=== PATIENT | female | born 1995 | race African-American/Black ===

== ENCOUNTER 2016-04-02 06:16 | Day surgery (SDC) | payer BC ==
[~2016-04-02] VITALS: Ht 160 cm; Wt 123.8 kg
[~2016-04-02 06:16] MED LIST: BENADRYL50 MG PO; CIPRO500 MG PO; ENDOCET 5-3251 EACH PO; FLAGYL500 MG PO; FLEXERIL10 MG PO; IBUPROFEN800 MG PO; KEFLEX500 MG PO; LEVAQUIN750 MG PO; MACROBID100 MG PO; NOHOMEMEDS; PERCOCET 5/31 TABLET PO; PREDNISONE20 MG PO; PRENATAL ONE T1 EACH PO; PYRIDIUM200 MG PO; VENTOLIN HFA18 GM IH; ZANTAC150 MG PO; ZITHROMAX250 MG PO; ZOFRAN ODT4 MG PO; ZOFRAN4 MG PO
[2016-04-02 07:05] LABS: HEMATOCRIT 39.7 % (36.0-46.0); MCH 30.3 PG (29.0-34.0); MCHC 33.5 G/DL (30.0-36.0); MCV 90.4 FL (83-99); MEAN PLAT.VOLUME 10.2 uM^3 (9.5-12.4); PLATELET COUNT 336 K/uL (156-360); RBC DIS.WIDTH-CV 12.7 % (11.8-14.6); RBC DIS.WIDTH-SD 41.2 % (39-53); RED BLOOD COUNT 4.39 M/uL (3.80-5.20); WHITE BLOOD COUNT 7.7 K/uL (4.1-10.2)
[2016-04-02 07:18] LABS: CHLORIDE 108 mEq/L (99-109); POTASSIUM 3.7 mEq/L (3.7-5.4); SODIUM 140 mEq/L (136-147)
[2016-04-02 07:20] LABS: GLUCOSE 90 mg/dL (70-99)
[2016-04-02 07:21] LABS: ANION GAP 9 MEQ/L (2-14)
[2016-04-02 07:22] LABS: TOTAL BILIRUBIN 0.4 mg/dL (0.0-1.0)
[2016-04-02 07:23] LABS: ALKALINE PHOSPHATASE 68 IU/L (3-129)
[2016-04-02 07:24] LABS: GFR ESTIMATE (CALCULATED) > 59 mL/min/
[2016-04-02 07:25] LABS: DIRECT BILIRUBIN 0.2 mg/dL (0.0-0.3); UREA NITROGEN (BUN) 17 mg/dL (9-23)
[2016-04-02 07:27] LABS: LIPASE 33 U/L (1.0-51.0)
[2016-04-02 07:33] LABS: QUANTITATIVE HCG < 4.0 MIU/ML
[2016-04-02 07:49] LABS: TROP-I INTERPRETATION NEGATIVE; TROPONIN-I < 0.01 ng/mL (0.0-0.30)
[2016-04-02 08:07] LABS: ADD MIUA? YES; BILIRUBIN NEGATIVE; BLOOD TRACE; COLOR YELLOW ((YELLOW)); GLUCOSE (STRIP) NEGATIVE; KETONES NEGATIVE; LEUKOCYTES NEGATIVE; NITRITE NEGATIVE; PROTEIN (STRIP) TRACE; UROBILINOGEN 0.2 MG/DL (0.2-1.0)
[2016-04-02 08:44] LABS: RED BLOOD CELLS 0-5 /HPF (0-5)
[2016-04-02 08:46] LABS: BACTERIA 2+ /HPF; CASTS NONE SEEN /LPF; CRYSTALS NONE SEEN; EPITHELIAL CELLS 1+ /HPF; MUCUS 1+ /LPF; UCUL ADDED? NO; WHITE BLOOD CELLS 0-5 /HPF (0-5)
[2016-04-02 14:48] VITALS: BP 114/68
[2016-04-02 22:55] VITALS: BP 115/73
[2016-04-03 04:30] VITALS: BP 109/53
[2016-04-03 07:01] LABS: HEMATOCRIT 40.5 % (36.0-46.0); MCH 30.1 PG (29.0-34.0); MCHC 32.8 G/DL (30.0-36.0); MCV 91.6 FL (83-99); MEAN PLAT.VOLUME 10.3 uM^3 (9.5-12.4); PLATELET COUNT 357 K/uL (156-360); RBC DIS.WIDTH-CV 12.7 % (11.8-14.6); RBC DIS.WIDTH-SD 42.6 % (39-53); RED BLOOD COUNT 4.42 M/uL (3.80-5.20); WHITE BLOOD COUNT 11.8 K/uL (4.1-10.2)
[2016-04-03 07:23] LABS: ALKALINE PHOSPHATASE 52 IU/L (3-129); ANION GAP 8 MEQ/L (2-14); CHLORIDE 104 MEQ/L (99-109); GFR ESTIMATE (CALCULATED) > 59 mL/min/; GLUCOSE 120 mg/dL (70-99); MAGNESIUM 1.8 mg/dl (1.3-2.7); POTASSIUM 4.6 MEQ/L (3.7-5.4); SAMPLE HEMOLYSIS CHECK 0; SAMPLE ICTERIC CHECK 0; SAMPLE LIPEMIA CHECK 0; SODIUM 136 MEQ/L (136-147); TOTAL BILIRUBIN 0.6 MG/DL (0.0-1.0); UREA NITROGEN (BUN) 7 mg/dL (9-23)
[2016-04-03 08:00] VITALS: BP 113/57
[2016-04-03 08:34] LABS: TROP-I INTERPRETATION NEGATIVE; TROPONIN-I < 0.01 ng/mL (0.0-0.30)
[2016-04-03] MEDS ORDERED: PERCOCET 5/31 TABLET PO (10:14)
[2016-04-03] MEDS ORDERED: CIPRO500 MG PO (10:14)
[2016-04-03 11:07] VITALS: BP 108/62
[2016-04-03 16:09] VITALS: BP 104/55; BP 121/58
[2016-04-03 17:09] LABS: TROP-I INTERPRETATION NEGATIVE; TROPONIN-I < 0.01 ng/mL (0.0-0.30)
[2016-04-03 19:50] VITALS: BP 94/55
[2016-04-03 23:10] VITALS: BP 115/68
[2016-04-04 07:57] VITALS: BP 117/85
== END 2016-04-04 10:15 | disposition home or self-care (01) ==
LOC: EME 06:16 → SDC 14:15 → 4SOUTH 19:41 → 2SOUTH 19:41 → 4SOUTH 22:44
PROVIDERS: Surgery
PROC: 0DTJ4ZZ Resection of Appendix, Percutaneous Endoscopic Approach (ICD-10-PCS; principal; 2016-04-02)
DX: K35.80 Unspecified acute appendicitis (principal); K55.069 Acute infarction of intestine, part and extent unspecified; K63.89 Other specified diseases of intestine; E66.01 Morbid (severe) obesity due to excess calories; Z68.42 Body mass index [BMI] 45.0-49.9, adult; Z87.891 Personal history of nicotine dependence
CPT/HCPCS: 71020; 74177; 80053; 81003; 82248; 83690; 83735; 84100; 84484; 84702; 85027; 88304; 93005; 94799; 99281; 99285; G0378; J0744; J1100; J1170; J1650; J2250; J2270; J2405; J2550; J2710; J3010; J7030; J7120; S0030

== ENCOUNTER 2016-10-30 13:06 | Emergency (ER) | payer SELFPAY ==
[~2016-10-30] VITALS: Ht 160 cm; Wt 118.5 kg
[2016-10-30] MEDS ORDERED: FIORICET,ESG1 TABLET PO (16:16)
[2016-10-30 16:22] VITALS: BP 125/63
== END 2016-10-30 16:23 | disposition home or self-care (01) ==
LOC: EME 13:06 → RME 13:06
DX: G43.909 Migraine, unspecified, not intractable, without status migrainosus (principal); Z87.891 Personal history of nicotine dependence; Z88.0 Allergy status to penicillin; Z88.6 Allergy status to analgesic agent
CPT/HCPCS: 99281; 99284; J1110

== ENCOUNTER 2017-07-11 22:18 | Emergency (ER) | payer SELFPAY ==
[~2017-07-11] VITALS: Ht 160 cm; Wt 88.6 kg
[~2017-07-11 22:18] MED LIST changes: +FIORICET,ESG1 TABLET PO
[2017-07-11 22:43] LABS: HEMATOCRIT 40.2 % (36.0-46.0); HEMOGLOBIN 14.1 G/DL (11.9-15.5); MCHC 35.1 G/DL (30.0-36.0); MCV 91.4 FL (83-99); PLATELET COUNT 346 K/uL (156-360); RBC DIS.WIDTH-CV 12.4 % (11.8-14.6); RBC DIS.WIDTH-SD 41.4 % (39-53); WHITE BLOOD COUNT 7.2 K/uL (4.1-10.2)
[2017-07-11 22:52] LABS: ALBUMIN 4.5 g/dL (3.2-4.8)
[2017-07-11 22:53] LABS: CHLORIDE 108 mEq/L (99-109); POTASSIUM 3.7 mEq/L (3.7-5.4); SODIUM 142 mEq/L (136-147)
[2017-07-11 22:55] LABS: GLUCOSE 103 mg/dL (70-99); TOTAL PROTEIN 8.2 g/dL (6.4-8.3)
[2017-07-11 22:57] LABS: TOTAL BILIRUBIN 0.4 mg/dL (0.0-1.0)
[2017-07-11 22:58] LABS: ALKALINE PHOSPHATASE 63 IU/L (3-129)
[2017-07-11 22:59] LABS: CREATININE 0.7 mg/dL (0.6-1.3); GFR ESTIMATE (CALCULATED) > 59 mL/min/
[2017-07-11 23:00] LABS: AST (GOT) 16 IU/L (2-34); UREA NITROGEN (BUN) 5 mg/dL (9-23)
[2017-07-11 23:01] LABS: ALT (GPT) 11 IU/L (3-49)
[2017-07-11 23:07] LABS: QUANTITATIVE HCG < 4.0 MIU/ML
[2017-07-12 01:16] LABS: TROP-I INTERPRETATION NEGATIVE; TROPONIN-I < 0.01 ng/mL (0.0-0.30)
[2017-07-12 02:28] VITALS: BP 108/74
== END 2017-07-12 02:28 | disposition home or self-care (01) ==
LOC: EME 22:18
PROVIDERS: Emergency Medicine
DX: R51 Headache (principal); E86.0 Dehydration; R55 Syncope and collapse; Z87.891 Personal history of nicotine dependence
CPT/HCPCS: 70450; 80053; 81003; 84484; 84702; 85027; 93005; 99281; 99285; J0780; J1100; J1200; J7030